=== PATIENT | male | born 1950 | race Caucasian/White ===

== ENCOUNTER 2021-01-14 08:58 | Day surgery (SDC) | payer OTHER ==
[~2021-01-14] VITALS: Ht 185.4 cm; Wt 99.8 kg
[~2021-01-14 08:58] MED LIST: Glucophage Xr750 MG PO; METF850 PO; Naprosyn500 MG PO
--- NOTE | 2021-01-14 09:16 | NUR ---
Ambulatory in Day Surgery Patient states colon prep results clear. History, Chart, Medications and Allergies reviewed before start of procedure. Pre-Op teaching done. Pt verbalizes understanding. Patient States Post-Procedure ride home has been arranged.
[2021-01-14] MEDS ORDERED: BASAGLAR K100 UNIT/1 SC (09:20)
--- NOTE | 2021-01-14 10:14 | NUR ---
01/14/21 1014 Deanan Meyer History, Chart, Medications and Allergies reviewed before start of procedure.MONITOR INTACT WITH CONTINUOUS PULSE OXIMETRY AND INTERMITTENT BP.O2 VIA N/C INTACT THROUGHOUT SEDATION/PROCEDURE. 3-LEAD EKG REVIEWED WITH PHYSICIAN PRIOR TO START OF PROCEDURE.PATIENT DETERMINED TO BE ASA APPROPRIATE FOR PROPOFOL SEDATION PRIOR TO START OF PROCEDURE BY
--- NOTE | 2021-01-14 10:58 | NUR ---
Patient up to Ambulate independently. Gait steady. Discharge instructions reviewed with patient. Patient verbalizes understanding. Copy given to patient to take home. Discharged via wheelchair to private car for ride home WITH SPOUSE.
== END 2021-01-14 10:59 | disposition home or self-care (01) ==
LOC: ORSCMMR 08:58 → ORSCSDS 11:00 → ORSCMMR 11:30 → ORD 11:30
PROVIDERS: Surgery
PROC: 0DBK8ZX Excision of Ascending Colon, Via Natural or Artificial Opening Endoscopic, Diagnostic (ICD-10-PCS; principal; 2021-01-14 10:30)
DX: Z12.11 Encounter for screening for malignant neoplasm of colon (principal); D12.2 Benign neoplasm of ascending colon; Z86.010 Personal history of colon polyps; E11.9 Type 2 diabetes mellitus without complications; G47.33 Obstructive sleep apnea (adult) (pediatric); Z79.4 Long term (current) use of insulin
CPT/HCPCS: 82947; 88305; J2704; J7120

== ENCOUNTER → 2024-01-26 | Outpatient (CLI) | payer OTHER ==
[~2024-01-26] MED LIST changes: +BASAGLAR K100 UNIT/1 SC
[2024-01-26 12:03] LABS: Microalb/Creat Ratio UR, Rand 173.394 mg/g (0.000-30.000)
== END ==
LOC: LAB 08:05 → LAB SHORT 08:05
PROVIDERS: Family Medicine
DX: E11.9 Type 2 diabetes mellitus without complications (principal)
CPT/HCPCS: 82043; 82570